=== PATIENT | female | born 1950 | race Caucasian/White ===

== ENCOUNTER 2017-12-06 08:27 | Day surgery (SDC) | payer BC, MEDICARE ==
[~2017-12-06] VITALS: Ht 177.8 cm; Wt 77.2 kg
[~2017-12-06 08:27] MED LIST: ACID REDUCER200 MG PO; ALBUTEROL0.09 MG/A1 IH; AMLOPIDINE; ATARAX; ATARAX25 MG PO; CALCIUM/MAGNESI1 T17 PO; CLARITIN 1010 MG/TAB PO; DETROL; DETROL LA4 PO; DILAUDID 4MG TAB4 MG PO; EPI PEN; FLEXERIL 1010 MG/TAB PO; FORADIL PO; HYDROCODONE/APAP; IMITREX50 MG PO; LEVOTHYROXINE PO; LORTAB 2.5/5001 TAB PO; MULTIPLE VITAMI1 CAP PO; NORCO 325 MG-51 TAB PO; PERCOCET 325 MG1 TAB PO; PHENERGAN 25 TA25 MG PO; PREGABALIN; PULMICORT0.5 MG/2 M IH; PULMICORT0.5 MG/21 IH; REGLAN 10MG10 MG/TAB PO; SINGULAIR; SINGULAIR 110 MG/TAB PO; SKELAXIN800 MG PO; SYNTHROID0.137 MG PO; TOPAMAX200 MG PO; [UNRECOGNIZED DRUG - OTHER] PO
[2017-12-06 08:55] VITALS: BP 126/82; PULSE 85; TEMP 97.9
[2017-12-06] MEDS ORDERED: LIORESAL 1010 MG/TAB PO (08:58)
[2017-12-06] MEDS ORDERED: AFRIN 15 ML15 ML NS (08:58)
[2017-12-06] MEDS ORDERED: COLACE 100100 MG/CAP PO (08:59)
[2017-12-06] MEDS ORDERED: ZYRTEC 10MG10 MG PO (08:59)
[2017-12-06] MEDS ORDERED: MAG-OX 400400 MG/TAB PO (09:00)
[2017-12-06] MEDS ORDERED: DULERA1 AR1 IH (09:00)
[2017-12-06] MEDS ORDERED: PHENERGAN 25 TA25 MG PO (09:01)
[2017-12-06] MEDS ORDERED: DITROPAN 5MG TAB5 MG PO (09:01)
[2017-12-06] MEDS ORDERED: PATADAY 2.5 ML2.5 ML OU (09:01)
[2017-12-06] MEDS ORDERED: REQUIP 1MG T1 MG/TAB PO (09:02)
[2017-12-06] MEDS ORDERED: IMITREX 6M6 MG/0.5 M SQ (09:03)
[2017-12-06] MEDS ORDERED: VITAMIND3 5000 (09:03)
[2017-12-06 10:38] VITALS: BP 111/63; PULSE 75; TEMP 97.8
[2017-12-06 10:45] VITALS: BP 93/60; PULSE 66
[2017-12-06 11:00] VITALS: BP 105/64; PULSE 67
== END 2017-12-06 11:30 | disposition home or self-care (01) ==
LOC: SDCO 08:27
DX: Z12.11 Encounter for screening for malignant neoplasm of colon (principal); D12.0 Benign neoplasm of cecum; D12.2 Benign neoplasm of ascending colon; D12.3 Benign neoplasm of transverse colon; K63.5 Polyp of colon; K63.89 Other specified diseases of intestine; J45.909 Unspecified asthma, uncomplicated; Z88.8 Allergy status to other drugs, medicaments and biological substances; Z91.041 Radiographic dye allergy status; Z91.012 Allergy to eggs; Z80.0 Family history of malignant neoplasm of digestive organs
CPT/HCPCS: J2405; J2704; J7030

== ENCOUNTER 2018-03-07 10:21 | Outpatient (RCR) | payer OTHER ==
[~2018-03-07 10:21] MED LIST changes: +AFRIN 15 ML15 ML NS; +COLACE 100100 MG/CAP PO; +DITROPAN 5MG TAB5 MG PO; +DULERA1 AR1 IH; +IMITREX 6M6 MG/0.5 M SQ; +LIORESAL 1010 MG/TAB PO; +MAG-OX 400400 MG/TAB PO; +PATADAY 2.5 ML2.5 ML OU; +REQUIP 1MG T1 MG/TAB PO; +VITAMIND3 5000; +ZYRTEC 10MG10 MG PO
== END 2018-03-08 14:59 | disposition home or self-care (01) ==
LOC: WSOH 10:21
DX: M25.562 Pain in left knee (principal); Z98.890 Other specified postprocedural states

== ENCOUNTER → 2018-04-07 | Outpatient (CLI) | payer BC, MEDICARE | LOC: MC.RAD 14:31 | DX: Z12.31 Encounter for screening mammogram for malignant neoplasm of breast (principal) ==

== ENCOUNTER → 2020-01-10 | Outpatient (CLI) | payer MEDICARE | LOC: COL.RAD 06:49 | DX: Z11.59 Encounter for screening for other viral diseases (principal); R31.9 Hematuria, unspecified ==